=== PATIENT | female | born 1985 | race Caucasian/White ===

== ENCOUNTER 2016-08-08 06:48 | Inpatient (IN) | payer OTHER ==
[~2016-08-08] VITALS: Ht 162.6 cm; Wt 78.5 kg
[~2016-08-08 06:48] MED LIST: PHENERGAN 12.12.5 M1 PO; PRENATAL VITAM1 EAC5 PO; ZANTAC 7575 MG PO
[2016-08-09 02:38] LABS: HEMOGLOBIN 9.4 gm/dl (12.3-15.3)
[2016-08-10] MEDS ORDERED: COLACE 100MG C100 MG PO (14:03)
== END 2016-08-10 14:25 | disposition home or self-care (01) | DRG 765 ==
LOC: OB 06:48
PROVIDERS: ADMIT Obstetrics & Gynecology
PROC: 3E0R3CZ (ICD-10-PCS; 2016-08-08)
PROC: 10D00Z1 Extraction of Products of Conception, Low, Open Approach (ICD-10-PCS; principal; 2016-08-08 11:19)
PROC: 3E0234Z Introduction of Serum, Toxoid and Vaccine into Muscle, Percutaneous Approach (ICD-10-PCS; 2016-08-09)
DX: O34.211 Maternal care for low transverse scar from previous cesarean delivery (principal); O99.324 Drug use complicating childbirth; F11.20 Opioid dependence, uncomplicated; O98.42 Viral hepatitis complicating childbirth; N85.8 Other specified noninflammatory disorders of uterus; O99.334 Smoking (tobacco) complicating childbirth; F17.210 Nicotine dependence, cigarettes, uncomplicated; B18.2 Chronic viral hepatitis C; Z3A.39 39 weeks gestation of pregnancy; Z37.0 Single live birth; O99.344 Other mental disorders complicating childbirth; F32.9 Major depressive disorder, single episode, unspecified; O99.353 Diseases of the nervous system complicating pregnancy, third trimester; G43.909 Migraine, unspecified, not intractable, without status migrainosus; Z23 Encounter for immunization; Z87.440 Personal history of urinary (tract) infections; Z79.899 Other long term (current) drug therapy; Z88.6 Allergy status to analgesic agent; Z90.49 Acquired absence of other specified parts of digestive tract; Z98.890 Other specified postprocedural states; Z82.49 Family history of ischemic heart disease and other diseases of the circulatory system; Z83.2 Family history of diseases of the blood and blood-forming organs and certain disorders involving the immune mechanism; Z82.0 Family history of epilepsy and other diseases of the nervous system
CPT/HCPCS: 36415; 80307; 81001; 82800; 85014; 85018; 85025; 90715; C9113; J0690; J1885; J2250; J2274; J2405; J2590; J2765; J3010; J3430; J7120

== ENCOUNTER 2020-10-07 09:12 | Emergency (ER) | payer OTHER ==
[~2020-10-07 09:12] MED LIST changes: +BACTRIM DS TAB1 EACH PO; +BACTROBAN NASAL1 G1 TOP; +COLACE 100MG C100 MG PO; +IBUPROFEN600 MG PO; +IBUPROFEN800 MG PO; +KEFLEX CAP 500500 MG PO; +PHENERGAN 25 MG25 M1 PO; +ZOFRAN ODT 4 MG4 MG GT; +ZOFRAN ODT 4 MG4 MG PO
== END 2020-10-07 11:09 | disposition home or self-care (01) ==
LOC: ER1 09:12
DX: A08.4 Viral intestinal infection, unspecified (principal); Z20.822 Contact with and (suspected) exposure to COVID-19
CPT/HCPCS: 96372; 99284; J1885; U0002

== ENCOUNTER 2021-03-30 15:54 | Emergency (ER) | payer OTHER | END 2021-03-30 16:09 | disposition left against medical advice (07) | LOC: ER1 15:54 | DX: Z53.21 Procedure and treatment not carried out due to patient leaving prior to being seen by health care provider (principal) ==